=== PATIENT | female | born 1935 | race Caucasian/White ===

== ENCOUNTER → 2016-12-12 | Outpatient (CLI) | payer MEDICARE, MEDICAID ==
--- NOTE | 2016-12-12 16:15 | REP ---
Right humerus: Three views. History: Contusion. Limited mobility. Findings: Three views of the right humerus demonstrate a comminuted fracture of the surgical neck and greater tuberosity of the proximal humerus. The patient has diffuse osteoporosis. Glenohumeral and acromioclavicular joints are normally aligned. 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 Impression: Proximal humeral fracture, nondisplaced. Diffuse osteoporosis. Signed by Ricardo Hendrix MD 12/12/2016 04:17 P
== END ==
LOC: M WUC 15:37
PROVIDERS: ATTEND Physician Assistant
DX: S40.021A Contusion of right upper arm, initial encounter (principal); X58.XXXA Exposure to other specified factors, initial encounter; Y92.89 Other specified places as the place of occurrence of the external cause

== ENCOUNTER 2016-12-26 14:57 | Outpatient (RCR) | payer MEDICARE, MEDICAID | END 2016-12-27 | LOC: M PT 14:57 | PROVIDERS: ATTEND Orthopaedic Surgery | DX: Z51.89 Encounter for other specified aftercare (principal); Z47.89 Encounter for other orthopedic aftercare | CPT/HCPCS: 97140; 97161; G8984; G8985 ==

== ENCOUNTER 2017-01-25 09:53 | Outpatient (RCR) | payer MEDICARE, MEDICAID ==
[2017-03-05] MEDS ORDERED: ASPI1TAB PO (09:38)
[2017-03-05] MEDS ORDERED: STOO100C PO (09:38)
[2017-03-05] MEDS ORDERED: DONETAB5 PO (09:38)
[2017-03-05] MEDS ORDERED: FOLI1TAB4 PO (09:38)
[2017-03-05] MEDS ORDERED: METO50TA7 PO (09:38)
[2017-03-05] MEDS ORDERED: VITA500046 PO (09:38)
[2017-03-05] MEDS ORDERED: TYLE325T5 PO (09:38)
[2017-03-05] MEDS ORDERED: ATOR40TA75 PO (09:38)
[2017-03-05] MEDS ORDERED: VITA500T PO (09:38)
[2017-03-05] MEDS ORDERED: MIRA3350 PO (09:38)
[2017-03-05] MEDS ORDERED: FERR32TA PO (09:38)
[2017-03-05] MEDS ORDERED: ARTI99.0 OP (09:38)
[2017-03-05] MEDS ORDERED: TEMA7.5C PO (09:38)
== END 2017-01-26 ==
LOC: M PT 09:53
PROVIDERS: ATTEND Orthopaedic Surgery
DX: Z51.89 Encounter for other specified aftercare (principal)
CPT/HCPCS: 97140; G8984; G8985

== ENCOUNTER → 2017-02-26 | Outpatient (RCR) | payer MEDICARE, MEDICAID ==
[~2017-02-26] MED LIST: ARTI99.0 OP; ASPI1TAB PO; ATOR40TA75 PO; DONETAB5 PO; FERR32TA PO; FOLI1TAB4 PO; METO50TA7 PO; MIRA3350 PO; STOO100C PO; TEMA7.5C PO; TYLE325T5 PO; VITA500046 PO; VITA500T PO
== END | disposition home or self-care (01) ==
LOC: M PT 02-05 09:49
PROVIDERS: ATTEND Orthopaedic Surgery
DX: Z51.89 Encounter for other specified aftercare (principal)
CPT/HCPCS: 97110; 97140; G8984; G8985

== ENCOUNTER → 2017-03-02 | Outpatient (CLI) | payer MEDICARE, MEDICAID ==
[2017-03-02 08:23] LABS: ANION GAP 8 MEQ/L (8-16); BLOOD UREA NITROGEN 19 MG/DL (7-18); CALCIUM LEVEL 9.1 MG/DL (8.8-10.2); CARBON DIOXIDE LEVEL 29 MEQ/L (21-32); CHLORIDE LEVEL 105 MEQ/L (98-107); CREATININE FOR GFR 0.81 MG/DL (0.55-1.02); GLOMERULAR FILTRATION RATE > 60.0 (>32); GLUCOSE, FASTING 108 MG/DL (83-110); POTASSIUM SERUM 4.5 MEQ/L (3.5-5.1); SODIUM LEVEL 142 MEQ/L (136-145)
--- NOTE | 2017-03-02 09:32 | REP ---
PA and lateral chest: A comparison is 08/26/2009. The lung cisneros are clear. Cardiac size is normal. The maris, mediastinum, and bony thorax are unremarkable except for right shoulder osteoarthritis. There are sternotomy wires, not present previously. Impression: Essentially negative PA and lateral chest. There are sternotomy wires. There is right shoulder Signed by Frank Álvarez MD 03/02/2017 09:23 A
--- NOTE | 2017-03-02 13:01 | ECGEPIP ---
Stationary ECG Study [facility] Test Date: 2017-03-02 Pat Name: PAT GRIFFITH Department: Room: - Gender: F [employer]: : 1935 Requested By: AVANI Ramírez Order Number: [id number] Reading MD: Ozzy Swan Measurements Intervals [place] Rate: 52 P: 48 HI: 170 QRS: 39 QRSD: 93 T: 22 QT: 460 QTc: 428 Interpretive Statements SINUS BRADYCARDIA Otherwise normal Electronically Signed On 03-02-2017 13:01:08 EDT by Ozzy Swan
== END ==
LOC: M LAB 07:19
PROVIDERS: ATTEND Ophthalmology
DX: I11.0 Hypertensive heart disease with heart failure (principal)

== ENCOUNTER → 2017-03-09 | Outpatient (CLI) | payer MEDICARE, BC, MEDICAID ==
[2017-03-09 09:26] LABS: MEAN CORPUSCULAR HEMOGLOBIN 31.5 pg (27.0-33.0); MEAN CORPUSCULAR HGB CONC 34.4 g/dl (32.0-36.5); MEAN CORPUSCULAR VOLUME 91.7 fl (80.0-96.0); RED CELL DISTRIBUTION WIDTH 12.6 % (11.5-14.5); WHITE BLOOD COUNT 4.4 K/mm3 (4.0-10.0)
[2017-03-09 09:47] LABS: ALBUMIN 3.8 GM/DL (3.2-5.2); ALBUMIN/GLOBULIN RATIO 1.31 (1.00-1.93); ALKALINE PHOSPHATASE 68 U/L (45-117); ALT/SGPT 31 U/L (12-78); ANION GAP 9 MEQ/L (8-16); AST/SGOT 17 U/L (15-37); BILIRUBIN,TOTAL 0.6 MG/DL (0.2-1.0); BLOOD UREA NITROGEN 18 MG/DL (7-18); CALCIUM LEVEL 8.8 MG/DL (8.8-10.2); CARBON DIOXIDE LEVEL 29 MEQ/L (21-32); CHLORIDE LEVEL 107 MEQ/L (98-107); CHOLESTEROL LEVEL 155 MG/DL (<200); CREATININE FOR GFR 0.81 MG/DL (0.55-1.02); GLOMERULAR FILTRATION RATE > 60.0 (>32); GLUCOSE, FASTING 98 MG/DL (83-110); POTASSIUM SERUM 4.6 MEQ/L (3.5-5.1); SODIUM LEVEL 145 MEQ/L (136-145); TOTAL PROTEIN 6.7 GM/DL (6.4-8.2); TRIGLYCERIDES LEVEL 176 MG/DL (<150)
== END ==
LOC: M LAB 08:34
PROVIDERS: ATTEND Family Medicine
DX: E78.5 Hyperlipidemia, unspecified (principal); E55.9 Vitamin D deficiency, unspecified; I70.8 Atherosclerosis of other arteries

== ENCOUNTER 2017-03-15 09:59 | Day surgery (SDC) | payer MEDICARE, MEDICAID ==
[~2017-03-15] VITALS: Ht 30.5 cm; Wt 0.5 kg
[~2017-03-15 09:59] MED LIST changes: +ACETYLCHOLINE OPHTH SOLN 1% 2ML (MIOCHOL-E) As Ordered ONE; +BALANCED SALT IRRIGATION SOLUTION 500ML BAG (FOR OR EYE MACHINE) As Ordered ONE; +CEFUROXIME 1MG/0.1ML INTRACAMERAL INJ As Ordered ONE; +DUOVISC (0.50ML VISCOAT/0.55ML PROVISC) OPHTH KIT As Ordered ONE; +LIDOCAINE 0.75%/EPINEPHRINE 0.025% IN BSS 1ML SYR INTRACAMERAL (OR ONLY) As Ordered ONE; +MIDAZOLAM INJ 2 MG/2 ML VIAL (J2250) As Ordered ONE; +OFLOXACIN 0.3 % (OCUFLOX) OPTH SOL 5ML XX ONE; +PHENYLEPHRINE 2.5% OPHTH SOL 2ML XX ONE; +POVIDONE-IODINE 5% OPHTH PREP SOL 30ML As Ordered ONE; +PROPARACAINE 0.5% OPHTH SOL 15ML XX ONE; +TROPICAMIDE 1% OPHTH SOLN 2ML XX ONE; +fentaNYL 100 MCG/2 ML INJECTION (J3010) As Ordered ONE
[2017-03-15] MEDS ORDERED: LR 1,000 ML IV ONE (10:15)
[2017-03-15] MEDS ORDERED: OFLOXACIN 0.3 % (OCUFLOX) OPTH SOL 5ML As Ordered ONE (12:33)
[2017-03-15 13:20] VITALS: BP 187/78
--- NOTE | 2017-03-19 16:12 | RO ---
DATE OF PROCEDURE: 03/15/2017 PREOPERATIVE DIAGNOSES: 1. Dense visually significant nuclear sclerotic cataract left eye. 2. Small pupil left eye. POSTOPERATIVE DIAGNOSES: 1. Dense visually significant nuclear sclerotic cataract left eye. 2. Small pupil left eye. 3. Intraoperative floppy iris syndrome left eye. PROCEDURE: Complex cataract extraction with use of Malyugin ring insertion of intraocular lens implant AU00T0 23.0D left eye. SURGEON: Davion Finley DO EXAMINING OFFICER: ANESTHESIA: Local with monitored anesthesia care (MAC) and peribulbar block (0.75% Marcaine, 2% lidocaine) and use of Shugarcaine (4% lidocaine, 1:1000 epinephrine). COMPLICATIONS: None. POSTOPERATIVE CONDITION: Stable. INDICATION FOR SURGERY: Blurred vision left eye affecting patient's activities of daily living. DESCRIPTION OF PROCEDURE: The patient was seen in the preoperative area and properly identified. The correct operative eye was identified and marked. Attention was turned to that eye. The patient received optical antibiotics in the preoperative area. The patient then received topical dilating drops consisting of tropicamide and phenylephrine. The patient was then transferred to the operating room. The correct side was reidentified. The patient received topical anesthetics and antibiotics on the surface of the eye. The eye was prepped and draped in a sterile fashion. The upper and lower eyelids were isolated with Tegaderm tape, and the lids were held open with an adjustable speculum. Using a sideport blade, a paracentesis incision was made. Shugarcaine was then injected into the anterior chamber. Trypan blue was injected over the capsular bag and then washed out with balanced salt solution (BSS). A 7 mm Malyugin ring was placed without difficulty. Viscoelastic was then injected into the anterior chamber through the paracentesis. Using a 2.75 mm sharp-tipped keratome, the anterior chamber was entered via a temporal clear corneal incision. A continuous curvilinear capsulorrhexis was created with the aid of a 26-gauge cystotome and Utrata forceps. Hydrodissection was performed with BSS on a blunt cannula until the nucleus was freely mobile. The crystalline lens was phacoemulsified and aspirated. Additional cohesive viscoelastic was placed into the capsular bag to deepen it. A 23.0 lens was placed into the capsular bag and confirmed by visualizing the continuous curvilinear capsulorrhexis. Additional irrigation and aspiration was used to remove cortical material. The Malyugin ring was removed from the eye, and irrigation and aspiration was then used removing the remaining viscoelastic. The clear corneal incision was hydrated with BSS on a blunt cannula. The lens was well positioned. The incisions were then tested for leaks and found to be negative. A single #10-0 nylon suture was placed to close the main incision. The eye was then palpated for appropriate pressure and adjusted accordingly with BSS. Several drops of antibiotics and Iopidine were placed in the eye. The eyelid speculum was then carefully removed. Maxitrol ointment was placed in the eye. An eye patch and shield were then secured over the eye. The patient tolerated the procedure well and was discharged to the recovery unit in a stable condition.
== END 2017-03-15 13:40 | disposition home or self-care (01) ==
LOC: M SDC 09:59
PROVIDERS: ATTEND Ophthalmology
DX: H25.12 Age-related nuclear cataract, left eye (principal); H57.03 Miosis; H21.81 Floppy iris syndrome; I25.10 Atherosclerotic heart disease of native coronary artery without angina pectoris; I70.8 Atherosclerosis of other arteries; E78.5 Hyperlipidemia, unspecified; E55.9 Vitamin D deficiency, unspecified; F03.90 Unspecified dementia, unspecified severity, without behavioral disturbance, psychotic disturbance, mood disturbance, and anxiety; I11.9 Hypertensive heart disease without heart failure; D64.9 Anemia, unspecified; D75.9 Disease of blood and blood-forming organs, unspecified; Z79.899 Other long term (current) drug therapy; Z79.82 Long term (current) use of aspirin; Z86.010 Personal history of colon polyps; Z87.81 Personal history of (healed) traumatic fracture
CPT/HCPCS: 66982; J2250; J3010; V2632

== ENCOUNTER 2017-03-20 08:30 | Outpatient (RCR) | payer MEDICARE, MEDICAID ==
[~2017-03-20 08:30] MED LIST changes: -ACETYLCHOLINE OPHTH SOLN 1% 2ML (MIOCHOL-E) As Ordered ONE; -BALANCED SALT IRRIGATION SOLUTION 500ML BAG (FOR OR EYE MACHINE) As Ordered ONE; -CEFUROXIME 1MG/0.1ML INTRACAMERAL INJ As Ordered ONE; -DUOVISC (0.50ML VISCOAT/0.55ML PROVISC) OPHTH KIT As Ordered ONE; -LIDOCAINE 0.75%/EPINEPHRINE 0.025% IN BSS 1ML SYR INTRACAMERAL (OR ONLY) As Ordered ONE; -MIDAZOLAM INJ 2 MG/2 ML VIAL (J2250) As Ordered ONE; -OFLOXACIN 0.3 % (OCUFLOX) OPTH SOL 5ML XX ONE; -PHENYLEPHRINE 2.5% OPHTH SOL 2ML XX ONE; -POVIDONE-IODINE 5% OPHTH PREP SOL 30ML As Ordered ONE; -PROPARACAINE 0.5% OPHTH SOL 15ML XX ONE; -TROPICAMIDE 1% OPHTH SOLN 2ML XX ONE; -fentaNYL 100 MCG/2 ML INJECTION (J3010) As Ordered ONE
== END 2017-03-29 ==
LOC: M PT 08:30
PROVIDERS: ATTEND Orthopaedic Surgery
DX: Z47.89 Encounter for other orthopedic aftercare (principal)
CPT/HCPCS: 97110; G8979; G8980

== ENCOUNTER 2017-03-29 11:02 | Day surgery (SDC) | payer MEDICARE, MEDICAID ==
[~2017-03-29] VITALS: Ht 154.9 cm; Wt 76.0 kg
[~2017-03-29 11:02] MED LIST changes: +ACETYLCHOLINE OPHTH SOLN 1% 2ML (MIOCHOL-E) As Ordered ONE; +BALANCED SALT IRRIGATION SOLUTION 500ML BAG (FOR OR EYE MACHINE) As Ordered ONE; +CEFUROXIME 1MG/0.1ML INTRACAMERAL INJ As Ordered ONE; +DUOVISC (0.50ML VISCOAT/0.55ML PROVISC) OPHTH KIT As Ordered ONE; +LIDOCAINE 0.75%/EPINEPHRINE 0.025% IN BSS 1ML SYR INTRACAMERAL (OR ONLY) As Ordered ONE; +OFLOXACIN 0.3 % (OCUFLOX) OPTH SOL 5ML OD ONE; +PHENYLEPHRINE 2.5% OPHTH SOL 2ML OD ONE; +POVIDONE-IODINE 5% OPHTH PREP SOL 30ML As Ordered ONE; +PROPARACAINE 0.5% OPHTH SOL 15ML OD ONE; +TROPICAMIDE 1% OPHTH SOLN 2ML OD ONE
[2017-03-29] MEDS ORDERED: LR 1,000 ML IV SCH (11:15)
[2017-03-29] MEDS ORDERED: LIDOCAINE 1% SDV 5 ML VIAL SQ ONE (11:15)
[2017-03-29] MEDS ORDERED: LR 500 ML ONE (12:02)
[2017-03-29] MEDS ORDERED: fentaNYL 100 MCG/2 ML INJECTION (J3010) As Ordered ONE (12:13)
[2017-03-29] MEDS ORDERED: MIDAZOLAM INJ 2 MG/2 ML VIAL (J2250) As Ordered ONE (12:13)
[2017-03-29] MEDS ORDERED: DUOVISC (0.50ML VISCOAT/0.55ML PROVISC) OPHTH KIT As Ordered ONE (12:52)
[2017-03-29 13:45] VITALS: BP 185/76
--- NOTE | 2017-03-30 16:53 | RO ---
DATE OF PROCEDURE: 03/29/2017 PREOPERATIVE DIAGNOSES: 1. Dense visually significant nuclear sclerotic cataract right eye. 2. Small pupil right eye. POSTOPERATIVE DIAGNOSES: 1. Dense visually significant nuclear sclerotic cataract right eye. 2. Small pupil right eye. 3. Intraoperative floppy iris syndrome right eye. PROCEDURE: Complex cataract extraction with insertion of intraocular lens implant with use of Malyugin ring and ReSure Sealant, placement of AU00T0, 21.0 diopters, right eye. SURGEON: Davion Finley DO REDUCTION FURNACE OPERATOR HELPER: ANESTHESIA: Local with monitored anesthesia care (MAC) COMPLICATIONS: None. POSTOPERATIVE CONDITION: Stable. INDICATION FOR SURGERY: Blurred vision right eye affecting patient's activities of daily living. DESCRIPTION OF PROCEDURE: The patient was seen in the preoperative area and properly identified. The correct operative eye was identified and marked. Attention was turned to that eye. The patient received optical antibiotics in the preoperative area. The patient then received topical dilating drops consisting of tropicamide and phenylephrine. The patient was then transferred to the operating room. The correct side was reidentified. The patient received topical anesthetics and antibiotics on the surface of the eye. The eye was prepped and draped in a sterile fashion. The upper and lower eyelids were isolated with Tegaderm tape, and the lids were held open with an adjustable speculum. Using a sideport blade, a paracentesis incision was made. Shugarcaine was then injected into the anterior chamber. Viscoelastic was then injected into the anterior chamber through the paracentesis. Using a 2.6 mm sharp-tipped keratome, the anterior chamber was entered via a temporal clear corneal incision. A 7mm Malyugin ring was placed to expand the pupil. A continuous curvilinear capsulorrhexis was created with the aid of a 26-gauge cystotome and Utrata forceps. Hydrodissection was performed with BSS on a blunt cannula until the nucleus was freely mobile. The crystalline lens was phacoemulsified and aspirated. Additional cohesive viscoelastic was placed into the capsular bag to deepen it. A AU00T0, 21.0 diopter lens was placed into the capsular bag and confirmed by visualizing the continuous curvilinear capsulorrhexis. Additional irrigation and aspiration was used to remove cortical material. The Malyugin ring was removed from the eye, and irrigation and aspiration was then used removing the remaining viscoelastic. The clear corneal incision was hydrated with BSS on a blunt cannula. The lens was well positioned. The incisions were then tested for leaks and found to be negative. Resure sealant was placed on the temporal incision to close it. The eye was then palpated for appropriate pressure and adjusted accordingly with BSS. The eyelid speculum was then carefully removed. A shield was placed over the eye. The patient tolerated the procedure well and was discharged to the recovery unit in a stable condition. KELLEY
== END 2017-03-29 14:24 | disposition home or self-care (01) ==
LOC: M SDC 11:02
PROVIDERS: ATTEND Ophthalmology
DX: H25.11 Age-related nuclear cataract, right eye (principal); H57.03 Miosis; H21.81 Floppy iris syndrome; I10 Essential (primary) hypertension; E03.9 Hypothyroidism, unspecified; I25.10 Atherosclerotic heart disease of native coronary artery without angina pectoris; E78.00 Pure hypercholesterolemia, unspecified; I65.29 Occlusion and stenosis of unspecified carotid artery; D64.9 Anemia, unspecified; F03.90 Unspecified dementia, unspecified severity, without behavioral disturbance, psychotic disturbance, mood disturbance, and anxiety; Z79.899 Other long term (current) drug therapy; Z79.82 Long term (current) use of aspirin; Z87.81 Personal history of (healed) traumatic fracture
CPT/HCPCS: 66982; J2250; J3010; V2632

== ENCOUNTER 2017-12-11 18:03 | Emergency (ER) | payer MEDICARE, MEDICAID ==
[2017-12-11 19:37] LABS: BASO % 0.4 % (0.0-1.0); EOS # 0.1 10^3/uL (0.0-0.50); EOS % 1.4 % (0.0-3.0); HEMATOCRIT 42.5 % (36.0-47.0); HEMOGLOBIN 14.2 g/dl (12.0-15.5); IMMATURE GRANULOCYTE % 0.3 % (0-3.0); LYMPH # 1.2 10^3/uL (1.5-4.5); LYMPH % 11.8 % (24.0-44.0); MEAN CORPUSCULAR HEMOGLOBIN 31.6 pg (27.0-33.0); MEAN CORPUSCULAR HGB CONC 33.4 g/dl (32.0-36.5); MEAN CORPUSCULAR VOLUME 94.4 fl (80.0-96.0); MONO # 0.6 10^3/uL (0.0-0.8); MONO % 6.5 % (0.0-5.0); NEUTROPHILS # 7.9 10^3/uL (1.8-7.7); NEUTROPHILS % 79.6 % (36.0-66.0); PLATELET COUNT, AUTOMATED 149 10^3/uL (150-450); RED CELL DISTRIBUTION WIDTH 12.3 % (11.5-14.5); WHITE BLOOD COUNT 9.9 10^3/uL (4.0-10.0)
[2017-12-11 19:51] LABS: INR 1.01; PARTIAL THROMBOPLASTIN TIME 33.1 SECONDS (26.8-37.9); PROTHROMBIN TIME 13.4 SECONDS (12.4-14.5)
[2017-12-11] MEDS: TETANUS/DIPHTHERIA TOX ADSORB ADULT 0.5ML SYR/VIAL (90714) IM (20:00)
[2017-12-11] MEDS ORDERED: LIDOCAINE 1% MDV 20ML VIAL As Ordered (20:00)
[2017-12-11 20:02] LABS: ANION GAP 6 MEQ/L (8-16); BLOOD UREA NITROGEN 24 MG/DL (7-18); CALCIUM LEVEL 9.2 MG/DL (8.8-10.2); CARBON DIOXIDE LEVEL 29 MEQ/L (21-32); CHLORIDE LEVEL 105 MEQ/L (98-107); CK-MB VALUE MASS < 1.0 NG/ML (<3.6); CPK CREATINE PHOSPHOKINASE 83 U/L (26-192); CREATININE FOR GFR 0.86 MG/DL (0.55-1.30); GLOMERULAR FILTRATION RATE > 60.0 (>32); GLUCOSE, FASTING 106 MG/DL (70-100); POTASSIUM SERUM 4.4 MEQ/L (3.5-5.1); SODIUM LEVEL 140 MEQ/L (136-145); TROPONIN I < 0.02 NG/ML (< 0.10)
[2017-12-11] MEDS: LIDOCAINE 1% MDV 20ML VIAL SC (20:10)
== END 2017-12-11 20:41 | disposition home or self-care (01) ==
LOC: M ED 18:03
DX: S01.01XA Laceration without foreign body of scalp, initial encounter (principal); R00.1 Bradycardia, unspecified; W10.9XXA Fall (on) (from) unspecified stairs and steps, initial encounter; Y92.099 Unspecified place in other non-institutional residence as the place of occurrence of the external cause; Y93.01 Activity, walking, marching and hiking; Y99.9 Unspecified external cause status; E55.9 Vitamin D deficiency, unspecified; F03.90 Unspecified dementia, unspecified severity, without behavioral disturbance, psychotic disturbance, mood disturbance, and anxiety; Z79.82 Long term (current) use of aspirin; Z79.899 Other long term (current) drug therapy
CPT/HCPCS: 90714

== ENCOUNTER → 2018-03-18 | Outpatient (REF) | payer MEDICARE, MEDICAID ==
[2018-03-18 13:10] LABS: HEMATOCRIT 41.9 % (36.0-47.0); HEMOGLOBIN 14.3 g/dl (12.0-15.5); MEAN CORPUSCULAR HEMOGLOBIN 31.8 pg (27.0-33.0); MEAN CORPUSCULAR HGB CONC 34.1 g/dl (32.0-36.5); MEAN CORPUSCULAR VOLUME 93.1 fl (80.0-96.0); RED CELL DISTRIBUTION WIDTH 12.4 % (11.5-14.5); WHITE BLOOD COUNT 6.4 10^3/uL (4.0-10.0)
[2018-03-18 13:44] LABS: ALBUMIN 3.6 GM/DL (3.2-5.2); ALKALINE PHOSPHATASE 64 U/L (45-117); ALT/SGPT 32 U/L (12-78); ANION GAP 8 MEQ/L (8-16); AST/SGOT 25 U/L (7-37); BILIRUBIN,TOTAL 0.6 MG/DL (0.2-1.0); BLOOD UREA NITROGEN 21 MG/DL (7-18); CALCIUM LEVEL 9.1 MG/DL (8.8-10.2); CARBON DIOXIDE LEVEL 28 MEQ/L (21-32); CHLORIDE LEVEL 106 MEQ/L (98-107); CHOLESTEROL LEVEL 157 MG/DL (<200); CHOLESTEROL RISK RATIO 3.925 (<5); CREATININE FOR GFR 0.79 MG/DL (0.55-1.30); GLOMERULAR FILTRATION RATE > 60.0 (>32); GLUCOSE, FASTING 92 MG/DL (70-100); HDL CHOLESTEROL 40 MG/DL (>40); LDL CHOLESTEROL 67.6 MG/DL (<100); NON-HDL-C 117 MG/DL; POTASSIUM SERUM 4.9 MEQ/L (3.5-5.1); SODIUM LEVEL 142 MEQ/L (136-145); TOTAL PROTEIN 6.6 GM/DL (6.4-8.2); TRIGLYCERIDES LEVEL 247 MG/DL (<150)
[2018-03-18 14:00] LABS: PLATELET COUNT, AUTOMATED 126 10^3/uL (150-450); POSITIVE MORPH POS FLAG
[2018-03-18 15:09] LABS: TOTAL 25(OH) VITAMIN D 90.9 NG/ML (30.0-100.0)
== END ==
LOC: M SFHCPLAZ 11:57
DX: L30.9 Dermatitis, unspecified (principal); F01.50 Vascular dementia, unspecified severity, without behavioral disturbance, psychotic disturbance, mood disturbance, and anxiety; E78.5 Hyperlipidemia, unspecified; E55.9 Vitamin D deficiency, unspecified
CPT/HCPCS: 80053

== ENCOUNTER → 2018-07-24 | Outpatient (CLI) | payer MEDICARE, MEDICAID ==
[~2018-07-24] MED LIST changes: -ACETYLCHOLINE OPHTH SOLN 1% 2ML (MIOCHOL-E) As Ordered ONE; -BALANCED SALT IRRIGATION SOLUTION 500ML BAG (FOR OR EYE MACHINE) As Ordered ONE; -CEFUROXIME 1MG/0.1ML INTRACAMERAL INJ As Ordered ONE; -DUOVISC (0.50ML VISCOAT/0.55ML PROVISC) OPHTH KIT As Ordered ONE; +FOLI1TAB11 PO; -FOLI1TAB4 PO; -LIDOCAINE 0.75%/EPINEPHRINE 0.025% IN BSS 1ML SYR INTRACAMERAL (OR ONLY) As Ordered ONE; -OFLOXACIN 0.3 % (OCUFLOX) OPTH SOL 5ML OD ONE; -PHENYLEPHRINE 2.5% OPHTH SOL 2ML OD ONE; -POVIDONE-IODINE 5% OPHTH PREP SOL 30ML As Ordered ONE; -PROPARACAINE 0.5% OPHTH SOL 15ML OD ONE; -TROPICAMIDE 1% OPHTH SOLN 2ML OD ONE
--- NOTE | 2018-07-24 10:24 | REP ---
Clinical: Pain with subacute trauma. Technique: AP, lateral, bilateral oblique views of the right wrist. Findings: There is a nondisplaced partially impacted fracture involving the distal radial metaphysis extending to the articular surface with overlying soft tissue swelling. The carpal bones and distal ulna appear intact. Underlying age-related changes noted. Impression: Fracture of the distal radius with impaction. Electronically Signed by Jose Rafael Aguilar MD 07/24/2018 10:16 A
== END ==
LOC: M WUC 10:06
PROVIDERS: ATTEND Physician Assistant
DX: S59.291A Other physeal fracture of lower end of radius, right arm, initial encounter for closed fracture (principal); X58.XXXA Exposure to other specified factors, initial encounter; Y92.9 Unspecified place or not applicable

== ENCOUNTER → 2019-04-08 | Outpatient (REF) | payer MEDICARE, MEDICAID ==
[~2019-04-08] MED LIST changes: -ARTI99.0 OP; +ARTIDRO2 OP; -ASPI1TAB PO; +ASPI81TA26 PO; +MM S100C PO; -STOO100C PO
[2019-04-08 13:18] LABS: HEMATOCRIT 42.9 % (36.0-47.0); HEMOGLOBIN 14.4 g/dl (12.0-15.5); MEAN CORPUSCULAR HGB CONC 33.6 g/dl (32.0-36.5); MEAN CORPUSCULAR VOLUME 95.3 fl (80.0-96.0); PLATELET COUNT, AUTOMATED 133 10^3/uL (150-450); WHITE BLOOD COUNT 5.5 10^3/uL (4.0-10.0)
[2019-04-08 13:52] LABS: ALBUMIN 3.5 GM/DL (3.2-5.2); ALT/SGPT 39 U/L (12-78); BILIRUBIN,TOTAL 0.4 MG/DL (0.2-1.0); BLOOD UREA NITROGEN 17 MG/DL (7-18); CALCIUM LEVEL 9.3 MG/DL (8.8-10.2); CARBON DIOXIDE LEVEL 26 MEQ/L (21-32); CHLORIDE LEVEL 106 MEQ/L (98-107); CHOLESTEROL LEVEL 142 MG/DL (<200); CHOLESTEROL RISK RATIO 3.463 (<5); CREATININE FOR GFR 0.72 MG/DL (0.55-1.30); FREE T4 0.96 NG/DL (0.76-1.46); GLOMERULAR FILTRATION RATE > 60.0 (>32); GLUCOSE, FASTING 82 MG/DL (70-100); HDL CHOLESTEROL 41 MG/DL (>40); LDL CHOLESTEROL 60 MG/DL (<100); NON-HDL-C 101 MG/DL; POTASSIUM SERUM 4.8 MEQ/L (3.5-5.1); SODIUM LEVEL 142 MEQ/L (136-145); TOTAL PROTEIN 6.2 GM/DL (6.4-8.2); TRIGLYCERIDES LEVEL 203 MG/DL (<150)
== END ==
LOC: M SFHCADAM 12:29
PROVIDERS: ATTEND Family Medicine
DX: I65.29 Occlusion and stenosis of unspecified carotid artery (principal); E78.5 Hyperlipidemia, unspecified

== ENCOUNTER → 2020-10-05 | Outpatient (REF) | payer MEDICARE, MEDICAID ==
[~2020-10-05] MED LIST changes: -ARTIDRO2 OP; +POLYOPD OP; +VITA-243 PO; -VITA500T PO
[2020-10-05 17:00] LABS: HEMATOCRIT 43.3 % (36.0-47.0); MEAN CORPUSCULAR HEMOGLOBIN 32.2 pg (27.0-33.0); MEAN CORPUSCULAR HGB CONC 32.3 g/dl (32.0-36.5); MEAN CORPUSCULAR VOLUME 99.5 fl (80.0-96.0); PLATELET COUNT, AUTOMATED 124 10^3/uL (150-450); RED BLOOD COUNT 4.35 10^6/uL (4.00-5.40); WHITE BLOOD COUNT 6.3 10^3/uL (4.0-10.0)
[2020-10-05 17:41] LABS: ALBUMIN 3.8 GM/DL (3.2-5.2); ALT/SGPT 41 U/L (12-78); BILIRUBIN,TOTAL 0.3 MG/DL (0.2-1.0); BLOOD UREA NITROGEN 25 MG/DL (7-18); CALCIUM LEVEL 9.4 MG/DL (8.8-10.2); CARBON DIOXIDE LEVEL 31 MEQ/L (21-32); CHLORIDE LEVEL 106 MEQ/L (98-107); CHOLESTEROL LEVEL 145 MG/DL (<200); CHOLESTEROL RISK RATIO 3.452 (<5); CREATININE FOR GFR 0.75 MG/DL (0.55-1.30); FREE T4 0.74 NG/DL (0.76-1.46); GLOMERULAR FILTRATION RATE > 60.0 (>32); GLUCOSE, FASTING 132 MG/DL (70-100); HDL CHOLESTEROL 42 MG/DL (>40); LDL CHOLESTEROL 59 MG/DL (<100); NON-HDL-C 103 MG/DL; POTASSIUM SERUM 4.2 MEQ/L (3.5-5.1); SODIUM LEVEL 142 MEQ/L (136-145); TOTAL PROTEIN 6.8 GM/DL (6.4-8.2); TRIGLYCERIDES LEVEL 222 MG/DL (<150)
== END ==
LOC: M SFHCADAM 14:32
PROVIDERS: ATTEND Family Medicine
DX: I65.29 Occlusion and stenosis of unspecified carotid artery (principal); E78.5 Hyperlipidemia, unspecified

== ENCOUNTER → 2021-08-15 | Outpatient (REF) | payer MEDICARE, MEDICAID ==
[~2021-08-15] MED LIST changes: +DONE5TAB86 PO; -DONETAB5 PO
[2021-08-15 10:06] LABS: HEMATOCRIT 45.6 % (36.0-47.0); HEMOGLOBIN 15.1 g/dl (12.0-15.5); MEAN CORPUSCULAR HEMOGLOBIN 31.5 pg (27.0-33.0); MEAN CORPUSCULAR HGB CONC 33.1 g/dl (32.0-36.5); MEAN CORPUSCULAR VOLUME 95.2 fl (80.0-96.0); PLATELET COUNT, AUTOMATED 147 10^3/uL (150-450); RED BLOOD COUNT 4.79 10^6/uL (4.00-5.40); WHITE BLOOD COUNT 4.6 10^3/uL (4.0-10.0)
[2021-08-15 10:34] LABS: ALBUMIN 3.6 GM/DL (3.2-5.2); ALT/SGPT 34 U/L (12-78); BILIRUBIN,TOTAL 0.5 MG/DL (0.2-1.0); BLOOD UREA NITROGEN 23 MG/DL (7-18); CALCIUM LEVEL 9.3 MG/DL (8.8-10.2); CARBON DIOXIDE LEVEL 29 MEQ/L (21-32); CHLORIDE LEVEL 106 MEQ/L (98-107); CHOLESTEROL LEVEL 152 MG/DL (<200); CHOLESTEROL RISK RATIO 3.454 (<5); CREATININE FOR GFR 0.62 MG/DL (0.55-1.30); GLOMERULAR FILTRATION RATE > 60.0 (>32); GLUCOSE, FASTING 90 MG/DL (70-100); HDL CHOLESTEROL 44 MG/DL (>40); LDL CHOLESTEROL 78 MG/DL (<100); NON-HDL-C 108 MG/DL; POTASSIUM SERUM 4.6 MEQ/L (3.5-5.1); SODIUM LEVEL 142 MEQ/L (136-145); TOTAL PROTEIN 6.8 GM/DL (6.4-8.2); TRIGLYCERIDES LEVEL 152 MG/DL (<150)
[2021-08-15 10:42] LABS: TOTAL 25(OH) VITAMIN D 40.8 NG/ML (30.0-100.0)
== END ==
LOC: M LAB REF 09:49
PROVIDERS: ATTEND Family Medicine
DX: F01.50 Vascular dementia, unspecified severity, without behavioral disturbance, psychotic disturbance, mood disturbance, and anxiety (principal); I70.8 Atherosclerosis of other arteries; E78.5 Hyperlipidemia, unspecified; E55.9 Vitamin D deficiency, unspecified; Z79.899 Other long term (current) drug therapy

== ENCOUNTER → 2022-10-18 | Outpatient (REF) | payer MEDICARE, MEDICAID ==
[2022-10-18 13:42] LABS: HEMATOCRIT 43.1 % (36.0-47.0); HEMOGLOBIN 13.9 g/dl (12.0-15.5); MEAN CORPUSCULAR HEMOGLOBIN 31.4 pg (27.0-33.0); MEAN CORPUSCULAR HGB CONC 32.3 g/dl (32.0-36.5); MEAN CORPUSCULAR VOLUME 97.5 fl (80.0-96.0); PLATELET COUNT, AUTOMATED 173 10^3/uL (150-450); RED BLOOD COUNT 4.42 10^6/uL (4.00-5.40)
[2022-10-18 14:08] LABS: HEMOGLOBIN A1c 5.3 % (4.0-6.0)
[2022-10-18 14:15] LABS: ALBUMIN 3.8 G/DL (3.2-5.2); ALKALINE PHOSPHATASE 60 U/L (46-116); ALT/SGPT 15 U/L (7.0-40); AST/SGOT 22 U/L (<34); BILIRUBIN,TOTAL 0.6 MG/DL (0.3-1.2); BLOOD UREA NITROGEN 26 MG/DL (9-23); CALCIUM LEVEL 9.6 MG/DL (8.3-10.6); CARBON DIOXIDE LEVEL 30 MMOL/L (20-31); CHLORIDE LEVEL 107 MMOL/L (98-107); CHOLESTEROL LEVEL 165 MG/DL (<200); CHOLESTEROL RISK RATIO 3.94 (<5); CREATININE FOR GFR 0.77 MG/DL (0.55-1.30); FREE T4 1.02 NG/DL (0.89-1.76); GLOMERULAR FILTRATION RATE > 60.0 (>32); GLUCOSE, FASTING 77 MG/DL (74-106); HDL CHOLESTEROL 41.8 MG/DL (>40); LDL CHOLESTEROL 98.4 MG/DL (<100); NON-HDL-C 123.2 MG/DL; POTASSIUM SERUM 4.5 MMOL/L (3.5-5.1); SODIUM LEVEL 144 MMOL/L (136-145); THYROID STIMULATING HORMONE 1.006 uIU/ML (0.55-4.78); TOTAL 25(OH) VITAMIN D 42.4 NG/ML (20.0-100.0); TOTAL PROTEIN 6.4 G/DL (5.7-8.2); TRIGLYCERIDES LEVEL 124 MG/DL (<150); VITAMIN B12 LEVEL 247 PG/ML (211-911)
[2022-10-18 14:26] LABS: FOLATE > 24.00 NG/ML (>5.4)
== END ==
LOC: M SFHCADAM 11:06
PROVIDERS: ATTEND Family Medicine
DX: F01.50 Vascular dementia, unspecified severity, without behavioral disturbance, psychotic disturbance, mood disturbance, and anxiety (principal); I70.8 Atherosclerosis of other arteries; E78.5 Hyperlipidemia, unspecified; E55.9 Vitamin D deficiency, unspecified; Z13.1 Encounter for screening for diabetes mellitus; Z79.899 Other long term (current) drug therapy